=== PATIENT | female | born 1950 | race Hispanic/Latino ===

== ENCOUNTER 2017-07-16 08:54 | Outpatient (RCR) | payer OTHER ==
[~2017-07-16 08:54] MED LIST: METFORMIN HCL500 MG PO; SINCALIDE 3 MCG/VIAL INJ ONE
[2017-07-17] MEDS ORDERED: BUPIVACAINE 0.25%/EPI 30ML SDV INJ ONE (13:50)
== END 2017-08-03 ==
LOC: PT 08:54
PROVIDERS: ATTEND Specialist
DX: M77.8 Other enthesopathies, not elsewhere classified (principal); M25.512 Pain in left shoulder; M25.612 Stiffness of left shoulder, not elsewhere classified; M62.81 Muscle weakness (generalized)
CPT/HCPCS: 97010; 97110 ×6; J2805

== ENCOUNTER 2017-07-25 09:11 | Emergency (ER) | payer OTHER ==
[~2017-07-25] VITALS: Ht 165.1 cm; Wt 74.8 kg
[~2017-07-25 09:11] MED LIST changes: -SINCALIDE 3 MCG/VIAL INJ ONE
[2017-07-25] MEDS ORDERED: ACETAMINOPHEN 325 MG TAB PO ONE (10:30)
[2017-07-25 11:07] LABS: BILIRUBIN,URINE NEGATIVE (NEGATIVE); KETONES,URINE NEGATIVE (NEGATIVE); LEUKOCYTE ESTERASE ,URINE 2+ (NEGATIVE); NITRITE,URINE NEGATIVE (NEGATIVE); URINE UROBILINOGEN 0.2 mg/dL (0.2 - 1)
[2017-07-25 11:09] LABS: CLARITY,URINE CLOUDY (CLEAR); COLOR,URINE AMBER (YELLOW); PROTEIN,URINE DIPSTICK 2+ (NEGATIVE)
[2017-07-25 11:57] LABS: BACTERIA,URINE MODERATE /HPF; RBC,URINE >50 /HPF (0-5); RENAL EPITHELIAL CELLS,URINE FEW; TRANSITIONAL EPI CELLS,URINE FEW; WBC,URINE (MAN) >50 /HPF (0-5)
[2017-07-25 11:58] LABS: EPITHELIAL CELLS,URINE FEW /LPF
[2017-07-25 12:24] VITALS: BP 159/72
== END 2017-07-25 12:33 | disposition home or self-care (01) ==
LOC: ER 09:11
DX: R30.0 Dysuria (principal); R10.30 Lower abdominal pain, unspecified; N30.91 Cystitis, unspecified with hematuria; E11.9 Type 2 diabetes mellitus without complications
CPT/HCPCS: 81001; 87086; 87186; 99283

== ENCOUNTER 2017-09-21 11:33 | Emergency (ER) | payer MEDICARE, OTHER ==
[~2017-09-21] VITALS: Ht 162.6 cm; Wt 74.8 kg
[2017-09-21] MEDS ORDERED: ONDANSETRON HCL INJ 2 MG/ML VIAL IV STA (12:48)
[2017-09-21] MEDS ORDERED: MECLIZINE HCL 12.5 MG TAB PO ONE (13:00)
[2017-09-21] MEDS ORDERED: SODIUM CHLORIDE 0.9% 1000ML 1,000 ML IV ONE (13:00)
== END 2017-09-21 15:28 | disposition home or self-care (01) ==
LOC: FSED 11:33
DX: H81.13 Benign paroxysmal vertigo, bilateral (principal); E11.65 Type 2 diabetes mellitus with hyperglycemia
CPT/HCPCS: 71046; 80053; 82553; 84484; 85025; 93005; 99284; J2405; J7030